=== PATIENT | male | born 1960 | race Caucasian/White ===

== ENCOUNTER 2022-04-24 14:50 | Emergency (ER) | payer OTHER, SELFPAY ==
[2022-04-24 14:53] VITALS: BP 146/108; PULSE 96; RESP 19; TEMP 36.7; O2SAT 94; BMI 29.0
[2022-04-24 14:58] VITALS: O2SAT 94
--- NOTE | 2022-04-24 15:03 | ED.RN ---
ATTEMPTED TO CALL , MONICA, NO ANSWER. VOICEMAIL LEFT.
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
--- NOTE | 2022-04-24 15:14 | EKG12_ITS ---
Test Reason : Blood Pressure : / mmHG Vent. Rate : 097 BPM Atrial Rate : 097 BPM P-R Int : 148 ms QRS Dur : 088 ms QT Int : 376 ms P-R-T Axes : 010 074 057 degrees QTc Int : 477 ms Normal sinus rhythm Nonspecific ST abnormality Abnormal ECG Confirmed by ROSAURA CHENG, JULIO ([id number]), web content editor PAUL SHER ([id number]) on 04/28/2022 9:48:33 A M Referred By: NIRANJAN Confirmed By:ESTRELLA KAPLAN MD
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
[2022-04-24 15:32] LABS: Absolute Lymphocyte Count 1.02 X10^3/uL (0.83-4.51); Absolute Neutrophil Count 2.4 X10^3/uL (2.0-7.7); Basophil# 0.12 X10^3/uL; Basophil% 2.7 % (0-1); Eosinophil# 0.04 X10^3/uL; Eosinophils% 0.9 % (0-5); Hematocrit 42.4 % (40-54); Hemoglobin 14.7 g/dL (13.0-16.5); Lymphocyte # 1.02 X10^3/ul (0.83-4.51); Lymphocyte % 22.6 % (19-41); Mean Corp Hgb Conc 34.7 g/dL (32-36); Mean Corpuscular Hgb 32.6 pg (27.0-32.0); Mean Platelet Vol. 10.8 fl (6.2-12.0); Monocyte# 0.88 X10^3/uL; Monocyte% 19.5 % (0-10); NRBC Flagged by Analyzer 0 % (0-5); Neutrophil # 2.43 X10^3/uL (2.7-7.7); Neutrophil % 53.9 % (47-70); Platelet Count 110 K/mm3 (150-450); RBC Distribution Width CV 14.7 % (11.6-14.6); RBC Distribution Width SD 51.7 fl (35.1-43.9); Red Blood Count 4.51 M/mm3 (4.6-6.2); White Blood Count 4.5 K/mm3 (4.4-11.0)
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
[2022-04-24 15:48] LABS: Anion Gap 18 (5-15); BUN 7 mg/dL (7-18); BUN/Creat Ratio 8.6 RATIO (10-20); Chloride 98 mmol/L (98-107); Creatinine, Serum 0.81 mg/dL (0.70-1.30); EST Glomerular Filtration Rate 103 mL/min (>60); Est Glom Filt Rate - Afr Amer 124 mL/min (>60); Estimated Creatinine Clearance 101.39 ml/min; Glucose 128 mg/dL (74-106); Sodium Level 138 mmol/L (136-145); Troponin-I HS 6 pg/mL (3.0-78.0)
[2022-04-24 15:53] VITALS: BP 149/95; PULSE 65; RESP 15; O2SAT 99
[2022-04-24 16:00] VITALS: BP 147/94; PULSE 69; RESP 15; O2SAT 98
[2022-04-24 16:04] LABS: Lactic Acid 3.3 mmol/L (0.4-1.9)
[2022-04-24 16:07] LABS: Alcohol, Blood (Medical)-Serum < 3.0 mg/dL
[2022-04-24 16:19] LABS: Color, Urine Yellow (Yellow); Glucose, Dipstick Normal (Normal); Ketone-Dipstick 50 mg/dl (Negative); Leukocyte Esterase-Dipstick 25 /ul (Negative); Nitrite-Dipstick Negative (Negative); Occult Blood-Urine 25 /ul (Negative); Protein-Dipstick 100 mg/dl (Negative); Specific Gravity, Urine 1.015 (1.002-1.030); Urine Bilirubin Dipstick 1 mg/dL (Negative); Urine Clarity Clear (Clear); Urine Urobilinogen 4 mg/dl (Normal)
[2022-04-24 16:26] LABS: Amphetamine Urine VISTA NEGATIVE (<1000 ng/mL); Barbiturate Urine VISTA NEGATIVE (< 200 ng/mL); Benzodiazepine Urine VISTA NEGATIVE (< 200 ng/mL); Cocaine Urine VISTA NEGATIVE (< 300 ng/mL); Ecstacy Urine VISTA NEGATIVE (< 500 ng/mL); Methadone Urine VISTA NEGATIVE (< 300 ng/mL); PCP Urine VISTA NEGATIVE (< 25 ng/mL); THC Urine VISTA NEGATIVE (< 50 ng/mL); Vista UDS pH Range 7
[2022-04-24 16:37] LABS: White Blood Cells 0-5 SEEN /hpf (0-5)
[2022-04-24 16:38] LABS: Red Blood Cells-Urine 0-5 SEEN /hpf (0-5); Squamous Epithelial Cells - UA 0-5 SEEN /hpf (0-5)
[2022-04-24 16:39] LABS: Bacteria 1+ /hpf (None Seen); Mucous, Urine 3+ /hpf (<or=2+)
[2022-04-24] MEDS: Potassium Chloride 10mEq/100mL 10 MEQ/100 ML IV.SOLN. 100 MEQ IV BOLUS (16:45)
[2022-04-24] MEDS: levETIRAcetam IV 1,000 MG/100 ML BAG 400 MG IV (16:46)
[2022-04-24 17:00] VITALS: BP 139/88; PULSE 107; RESP 16; O2SAT 98
[2022-04-24 19:27] LABS: Reflex Lactate? Y
== END 2022-04-24 18:35 | disposition short-term general hospital (02) ==
PROVIDERS: Emergency Provider Emergency Medicine; Visit Provider Emergency Medicine
DX: R56.9 Unspecified convulsions (principal); I62.02 Nontraumatic subacute subdural hemorrhage; E87.6 Hypokalemia; R31.9 Hematuria, unspecified; V48.5XXA Car driver injured in noncollision transport accident in traffic accident, initial encounter
CPT/HCPCS: 70450; 71046; 80048; 80307; 81001; 82077; 83605; 84484; 85025; 93005; 99285; J7030; A4216